=== PATIENT | female | born 2000 | race Caucasian/White ===

== ENCOUNTER 2020-06-04 19:17 | Emergency (ER) | payer OTHER ==
[~2020-06-04] VITALS: Ht 170.2 cm; Wt 86.3 kg
[2020-06-04 19:25] VITALS: BP 120/69
[2020-06-04 19:56] LABS: BILIRUBIN,URINE NEGATIVE (NEG); CLARITY,URINE CLEAR; COLOR,URINE YELLOW; NITRITE,URINE NEGATIVE (NEG); PROTEIN,URINE NEGATIVE (NEG-TRACE)
[2020-06-04 20:02] LABS: BACTERIA,URINE MOD /HPF (0-FEW)
--- NOTE | 2020-06-04 20:14 | PHYS DOC ---
General Adult EDM: Chief Complaint: PELVIC PAIN HPI: HPI: Patient is a 19 year old female who presents to the ED today complaining of vaginal bleeding. Patient states she had a vaginal delivery in December 2019. She states since then she has had irregular. Some of them lasting longer than normal. She states she started her cycle on May 26, 2020 and it stopped 2 days ago. She states she gets mild left pelvic pain whenever she has the cycles. Denies any chance she is . Denies any nausea vomiting. She is also requesting STD treatment and testing. Review of Systems: Review of Systems: Constitutional: Denies fever or chills. [] GI: Reports vaginal bleeding and left pelvic pain, denies nausea, vomiting, bloody stools or diarrhea. [] : Denies dysuria. [] Musculoskeletal: Denies back pain or joint pain. [] Integument: Denies rash. [] Neurologic: Denies headache, focal weakness or sensory changes. [] Psychiatric: Denies depression or anxiety. [] Heart Score: Risk Factors: Risk Factors: DM, Current or recent (<one month) smoker, HTN, HLP, family history of CAD, obesity. Risk Scores: Score 0 - 3: 2.5% MACE over next 6 weeks - Discharge Home Score 4 - 6: 20.3% MACE over next 6 weeks - Admit for Clinical Observation Score 7 - 10: 72.7% MACE over next 6 weeks - Early Invasive Strategies Current Medications: Current Medications Medications (Trade) Dose Ordered Sig/Skye Start Time Stop Time Status Last Admin Dose Admin Azithromycin (Zithromax) 1,000 mg 1X ONCE 06/04/20 20:00 06/04/20 20:01 UNV Ceftriaxone Sodium (Rocephin Im) 250 mg 1X ONCE 06/04/20 20:00 06/04/20 20:01 UNV Metronidazole (Flagyl) 2,000 mg 1X ONCE 06/04/20 20:00 06/04/20 20:01 UNV Ondansetron HCl (Zofran Odt) 4 mg 1X ONCE 06/04/20 20:00 06/04/20 20:01 UNV Physical Exam: PE: Constitutional: Well developed, well nourished, no acute distress, non-toxic appearance. [] Abdomen: Bowel sounds normal, soft, no tenderness, no masses, no pulsatile masses. [] Pelvic exam External pelvic appears normal, cervix is visualized, closed, no CMT, no adnexal tenderness, trace amount of clear white drainage in the vaginal vault, no bleeding Skin: Warm, dry, no erythema, no rash. [] Back: No tenderness, no CVA tenderness. [] Extremities: No tenderness, no cyanosis, no clubbing, ROM intact, no edema. [] Neurologic: Alert and oriented X 3, normal motor function, normal sensory function, no focal deficits noted. [] Psychologic: Affect normal, judgement normal, mood normal. [] Current Patient Data: Labs: Laboratory Tests Test 06/04/20 19:21 06/04/20 19:38 Urine Collection Type Unknown Urine Color Yellow Urine Clarity Clear Urine pH 7.0 (<5.0-8.0) Urine Specific [place] 1.025 (1.000-1.030) Urine Protein Negative mg/dL (NEG-TRACE) Urine Glucose (UA) Negative mg/dL (NEG) Urine Ketones (Stick) Negative mg/dL (NEG) Urine Blood Negative (NEG) Urine Nitrite Negative (NEG) Urine Bilirubin Negative (NEG) Urine Urobilinogen Dipstick 1.0 mg/dL (0.2 mg/dL) Urine Leukocyte Esterase Negative (NEG) Urine RBC 3-5 /HPF (0-2) Urine WBC 1-4 /HPF (0-4) Urine Squamous Epithelial Cells Many /LPF Urine Bacteria Mod /HPF (0-FEW) Urine Mucus Mod /LPF POC Urine HCG, Qualitative Hcg negative (Negative) Microbiology 06/04/20 Wet Prep - Final, Complete EKG: EKG: [] Radiology/Procedures: Radiology/Procedures: [] Course & Med Decision Making: Course & Med Decision Making Pertinent Labs and Imaging studies reviewed. (See chart for details) This is a 19-year-old female patient presenting to the ED today complaining of vaginal bleeding that began in December after having a vaginal delivery. She states her cycles have been irregular since then, she started her cycle May 26 and it ended 2 days ago. She has no bleeding today. She is requesting STD treatment which was provided. Hemoglobin and hematocrit are normal. Negative urine hCG, urine analysis is contaminated, wet prep negative for clue cells. Patient was discharged to home. Follow-up with her FORCE ADJUSTMENT SUPERVISOR in the next 1 to 2 weeks. Provided return precautions. Jean Disclaimer: Jean Disclaimer: This electronic medical record was generated, in whole or in part, using a voice recognition dictation system. Departure Departure Impression: Primary Impression: Dysfunctional uterine bleeding Disposition: 01 DC HOME SELF CARE/HOMELESS Condition: STABLE Referrals: SIXTO GUAJARDO Jr, MD follow up with your OBGYN in 1-2 weeks Patient Instructions: Uterine Bleeding, Dysfunctional Additional Instructions: You were evaluated in the emergency room, your test is negative, your hemoglobin and hematocrit are normal. We recommend you follow-up with your FORCE ADJUSTMENT SUPERVISOR in the next 1 to 2 weeks. Come back to the ED at any point symptoms worsen. MILLA CARDOZO REMOTE ENCODING OPERATIONS SUPERVISOR Jun 04, 2020 20:14
[2020-06-04 20:36] LABS: BASO # 0.1 x10^3/uL (0.0-0.2); BASO % 1 % (0-3); EOS # 0.3 x10^3/uL (0.0-0.7); EOS % 4 % (0-3); HEMATOCRIT 39.7 % (36.0-47.0); HEMOGLOBIN 13.9 g/dL (12.0-15.5); LYMPH # 3.1 x10^3/uL (1.0-4.8); LYMPH % 37 % (24-48); MEAN CORPUSCULAR HEMOGLOBIN 30 pg (25-35); MEAN CORPUSCULAR HGB CONC 35 g/dL (31-37); MEAN CORPUSCULAR VOLUME 85 fL (79-100); MONO # 0.8 x10^3/uL (0.0-1.1); MONO % 9 % (0-9); NEUT # 4.1 x10^3/uL (1.8-7.7); NEUT % 49 % (31-73); PLATELET COUNT 272 x10^3/uL (140-400); RED BLOOD COUNT 4.66 x10^6/uL (3.50-5.40); RED CELL DISTRIBUTION WIDTH 14.3 % (11.5-14.5); WHITE BLOOD COUNT 8.5 x10^3/uL (4.0-11.0)
[2020-06-04] MEDS ORDERED: metroNIDAZOLE 500 MG TABLET PO ONE (21:00)
[2020-06-04] MEDS ORDERED: AZITHROMYCIN 250 MG TABLET. PO ONE (21:00)
[2020-06-04] MEDS ORDERED: cefTRIAXone IM 250 MG VIAL IM ONE (21:00)
[2020-06-04] MEDS ORDERED: ONDANSETRON ODT 4 MG TAB.RAPDIS. PO ONE (21:00)
[2020-06-06 18:09] LABS: GC PROBE Negative (Negative)
== END 2020-06-04 20:20 | disposition home or self-care (01) ==
LOC: ER 19:17
DX: N93.8 Other specified abnormal uterine and vaginal bleeding (principal); R10.2 Pelvic and perineal pain
CPT/HCPCS: 81001; 81025; 85025; 87491; 87591; 99284; Q0111

== ENCOUNTER 2021-02-04 12:16 | Emergency (ER) | payer OTHER ==
[~2021-02-04] VITALS: Ht 170.2 cm; Wt 90.0 kg
[2021-02-04 13:10] LABS: BILIRUBIN,URINE NEGATIVE (NEG); CLARITY,URINE CLOUDY; COLOR,URINE YELLOW; NITRITE,URINE NEGATIVE (NEG); PROTEIN,URINE NEGATIVE (NEG-TRACE); UROBILINOGEN,URINE 0.2 mg/dL (0.2 mg/dL)
[2021-02-04 13:32] LABS: BACTERIA,URINE MANY /HPF (0-FEW)
[2021-02-04 13:33] LABS: RBC,URINE RARE /HPF (0-2)
[2021-02-04 13:39] VITALS: BP 122/60
--- NOTE | 2021-02-04 14:11 | RAD ---
INDICATION: Reason: CRAMPING IN / Spl. Instructions: / History: COMPARISON: None. TECHNIQUE: Grayscale and color ultrasound images uterus and adnexa. Transabdominal and transvaginal images obtained. Transvaginal images were needed to better visualize structures that were limited on transabdominal imaging. FINDINGS: Uterus: 97 x 71 x 52 mm. 18 mm endometrial stripe. Right Ovary: 37 x 28 x 25 mm. Left Ovary: 51 x 33 x 24 mm. Vascular flow identified to bilateral ovaries. Small free fluid in the pelvis. IMPRESSION: * There is some thickening of the endometrial stripe without intrauterine gestational sac seen at t his time. Follow-up could be obtained to ensure that there is appropriate development of a gestationa l sac if the patient has positive test to exclude early failure or ectopic pregna ncy. This could be secondary to it being too early in to visualize but follow-up needed. * Free fluid is seen within the pelvis. Electronically signed by: Ayush Medina MD (02/04/2021 2:08 PM) [id number]
[2021-02-04] MEDS ORDERED: CEPH500C PO (14:29)
--- NOTE | 2021-02-04 14:29 | ED.ADGEN ---
Past Medical History Past Medical History: No Pertinent History Past Surgical History: No Surgical History Smoking Status: Never Smoker Alcohol Use: None General Adult EDM: Chief Complaint: ABDOMINAL PAIN IN HPI: HPI: Patient is a 20 year old female who presents emergency department with complaints of lower abdominal cramping and low back pain during early . Patient reports her last menstrual cycle was sometime around 24 Dec 2020. She is 4, para 3 with no previous history of miscarriage. She reports that all 3 of her previous pregnancies were high risk. Patient denies any dysuria, hematuria, or difficulty voiding. She states she has had some increased urinary frequency. Patient denies any irregular vaginal discharge, vaginal bleeding, or vaginal odor. She denies any fever, cough, sore throat, nausea, vomiting, diarrhea, body aches, or fatigue. She currently rates the discomfort a 4 out of 10 on the pain scale, she denies any alleviating factors. Patient reports she has an appointment with her CONTRACTING ANALYST but it is not until March. Review of Systems: Review of Systems: Complete ROS is negative unless otherwise noted in HPI. Allergies: Allergies: Allergies Coded Allergies Type Severity Reaction Last Updated Verified No Known Drug Allergies 06/04/20 No Physical Exam: PE: See Above Constitutional: Well developed, well nourished, no acute distress, non-toxic appearance. [] HENT: Normocephalic, atraumatic, bilateral external ears normal, nose normal. [] Eyes: PERRLA, EOMI, conjunctiva normal, no discharge. [] Neck: Normal range of motion, no stridor. [] Cardiovascular:Heart rate regular rhythm Lungs & Thorax: Respirations even and unlabored, no retractions, no respiratory distress Abdomen: soft, no tenderness Back, nontender, no CVA tenderness. Skin: Warm, dry, no erythema, no rash. [] Extremities: No cyanosis, ROM intact, no edema. [] Neurologic: Alert and oriented X 3, no focal deficits noted. [] Psychologic: Affect normal, judgement normal, mood normal. [] Current Patient Data: Labs: Laboratory Tests Test 02/04/21 12:15 02/04/21 12:54 Urine Collection Type Unknown Urine Color Yellow Urine Clarity Cloudy Urine pH 6.0 (<5.0-8.0) Urine Specific [place] 1.025 (1.000-1.030) Urine Protein Negative mg/dL (NEG-TRACE) Urine Glucose (UA) Negative mg/dL (NEG) Urine Ketones (Stick) Negative mg/dL (NEG) Urine Blood Negative (NEG) Urine Nitrite Negative (NEG) Urine Bilirubin Negative (NEG) Urine Urobilinogen Dipstick 0.2 mg/dL (0.2 mg/dL) Urine Leukocyte Esterase Large (NEG) Urine RBC Rare /HPF (0-2) Urine WBC 11-20 /HPF (0-4) Urine Squamous Epithelial Cells Many /LPF Urine Bacteria Many /HPF (0-FEW) Urine Mucus Mod /LPF POC Urine HCG, Qualitative Hcg positive (Negative) Vital Signs: Vital Signs Date Time Temp Pulse Resp B/P (MAP) Pulse Ox O2 Delivery O2 Flow Rate FiO2 02/04/21 13:39 72 122/60 (80) 96 Room Air 02/04/21 12:39 98.3 18 98.3 EKG: EKG: [] Heart Score: C/O Chest Pain: No Radiology/Procedures: Radiology/Procedures: [] Course & Med Decision Making: Course & Med Decision Making Pertinent Labs and Imaging studies reviewed. (See chart for details) [] Patient is a 20-year-old female who presented to the emergency department with lower abdominal cramping and low back pain during early . Patient refused to have her blood drawn after an unsuccessful blood draw attempts. Urinalysis revealed 11-20 white blood cells with many bacteria, urine test was positive. Will treat with Keflex 500 p.o. twice daily x7 days. Ultrasound revealed: * There is some thickening of the endometrial stripe without intrauterine gestational sac seen at this time. Follow-up could be obtained to ensure that there is appropriate development of a gestational sac if the patient has positive test to exclude early failure or ectopic . This could be secondary to it being too early in to visualize but follow-up needed. * Free fluid is seen within the pelvis. I advised the patient of her ultrasound results. I informed her that I was unable to determine how far along she is in due to the lack of blood draw. I advised her that this cramping could be a sign of threatened miscarr iage. I encouraged her to follow-up with her CONTRACTING ANALYST next week for reevaluation, return to the ER if symptoms worsened or fever develop. Patient verbalized an understanding of home care, medications, follow-up, and return to ED instructions and was in agreement with the plan of care. Dragon Disclaimer: Jean Disclaimer: This electronic medical record was generated, in whole or in part, using a voice recognition dictation system. Departure Departure Impression: Primary Impression: Abdominal cramping affecting Additional Impression: UTI (urinary tract infection) in in first trimester Disposition: 01 HOME / SELF CARE / HOMELESS Condition: STABLE Referrals: NO PCP (PCP) FELIX PALMER MD Patient Instructions: Abdominal Pain During , [id number], - Urinary Tract Infection Additional Instructions: Fill prescription(s) and take as directed. Avoid bladder irritants such as caffeine, carbonation, and spicy foods. Increase clear fluids. Follow up with your CONTRACTING ANALYST next week, pelvic rest until evaluated by CONTRACTING ANALYST. Return to the ER if symptoms worsen or fever develops. Scripts Cephalexin (CEPHALEXIN) 500 Mg Capsule 1 CAP PO BID for 7 Days, #14 CAP 0 Refills Prov: NEMESIO YATES APRN 02/04/21 Problem Qualifiers NEMESIO YATES APRN Feb 04, 2021 14:29
== END 2021-02-04 15:04 | disposition home or self-care (01) ==
LOC: ER 12:16
DX: O23.41 Unspecified infection of urinary tract in pregnancy, first trimester (principal); Z3A.01 Less than 8 weeks gestation of pregnancy
CPT/HCPCS: 76801; 76817; 81001; 81025; 87086; 99284